=== PATIENT | female | born 1975 | race Caucasian/White ===

== ENCOUNTER 2017-03-20 19:12 | Emergency (ER) | payer OTHER ==
[~2017-03-20 19:12] MED LIST: ACETAMINOPHEN325 MG PO; ASPIRIN ADULT L81 MG PO; ENDOCET1 TAB PO; FOLIC ACID1 MG PO; HYCET1 ML PO; PRENATAL VITAMINS PO
--- NOTE | 2017-03-20 19:44 | ED NURSING NOTES ---
Clinical Report - Nurses [facility] [address] [place] [address] 03/20/2017 19:12 Patient: TONYA BARNHART TRIAGE Triage time 19:16 Mar 20 2017. Acuity: LEVEL 4. Chief Complaint: RIGHT LOWER EXTREMITY PAIN. 19:03/20/17. Alert. No acute distress. SEPSIS SCREEN: Sepsis Screen. Negative (no infection suspected/documented). KEVIN COMA SCORE: [place] Coma Scale: 15- eyes open spontaneously (4); best verbal response- oriented x 4 (5); best motor response- obeys commands (6). --19:23 Yisel Capellan 19:23 03/20/17. BP: 115/37. HR: 65. RR: 15. O2 saturation: 97%. Temp: 98.0 F. Pain level now 8/10. --19:23 Yisel Capellan. Weight: 83.4 kg stated. Height/Length: 66 inches Per Patient. BMI: 29.7. --19:21 Yisel Capellan. Medications Aspirin Oral. --19:19 Yisel Capellan. Medication/allergy information source: the patient and patient's family. --19:23 Yisel Capellan. Allergies None. --19:19 Yisel Capellan. History Arrived by private vehicle. Historian: patient. Accompanied by family. Primary physician (Alma). No injury occurred. This occurred (Two days ago). ( Pt reports pain in the back of the calf. Sometimes on movement, other times is random. C/o hard calf.). She has had trouble walking. 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 PAST MEDICAL HX: Tetanus status: up-to-date. Immunizations: up-to-date. Last normal menstrual period was 2 weeks ago. SOCIAL HX: Never smoker. No alcohol use or drug use. FALL RISK ASSESSMENT: Fall risk assessment completed. No fall risk identified. NUTRITIONAL RISK ASSESSMENT: The nutritional risk assessment revealed no deficiencies. FUNCTIONAL ASSESSMENT: Functional assessment: no impairments noted. LEARNING NEEDS ASSESSMENT: The learning needs assessment revealed no barriers. SKIN INTEGRITY ASSESSMENT: Skin integrity risk assessment completed. No skin integrity risk identified. --19:23 Yisel Capellan. PROBLEMS: Cholecystitis. CVA - Cerebrovascular Accident. --19:19 Yisel Capellan. ADDITIONAL SURGERIES: . Gallbladder Surgery. --19:19 Yisel Capellan. Assessment The patient states feels the same. --19: Yisel Capellan. Interventions ID band on patient. --19:23 Yisel Capellan. PHYSICAL ASSESSMENT 19:03/20/17. Ambulatory to room. Patient gowned. GENERAL / NEURO / PSYCH: Oriented X 4. Alert. Appears in no acute distress. EXTREMITIES: Bilateral 2+ non-pitting edema of the lower extremities involving both lower legs. Extremity pulses are within normal limits. Extremities exhibit normal ROM. Neuro-vascular status intact to the extremity. Normal gait. Right leg: tenderness and swelling. Left leg: swelling. SKIN: Skin intact. Skin is warm and dry. --19:24 Yisel Capellan. NURSING PROGRESS NOTES 19:03/20/17. The plan of care for this patient has been created. Neuro-vascular extremity check. Patient gowned. Reassurance given. Two patient identifiers checked. Call light placed in reach. Side rails up x 1. Bed placed in lowest position. Brakes of bed on. Patient ready for evaluation- chart flagged and ED physician and PA notified. --: Yisel Capellan. DISPOSITION / DISCHARGE :03/20/17. Departure time: :Mar 20 2017. Condition at departure: improved. The goals identified in the patient's plan of care were met. No learning barriers present. Discharge instructions provided and reviewed with the patient and family. Reviewed warnings (Patient and family verbalized awareness and understanding of warning s/sx listed in dc paperwork.). Reviewed medication(s) (Ibuprofen). Treatments reviewed. Reviewed referral to a primary care physician for followup. Patient verbalized understanding. Written instructions provided in Pashto. The patient was discharged by the physician retail event and sales assistant. She was discharged home and accompanied by family. She left the Emergency Department ambulatory and via private vehicle. Family member driving. FALL RISK ASSESSMENT: Fall risk assessment completed. No fall risk identified. --20:07 Yisel Capellan 20:03 03/20/17. BP: deferred. HR: deferred. RR: deferred. O2 saturation: deferred. Temp: deferred. Pain level now deferred. --20:07 Yisel Capellan. Locked/Released at 03/20/2017 20:07 by Yisel Capellan,
--- NOTE | 2017-03-20 19:44 | ED CLINICAL REPORT ---
Clinical Report - Physicians/Mid Levels [facility] [address] [place] [address] 03/20/2017 19:12 Patient: TONYA BARNHART Time Seen: 19:22 Mar 20 2017. Arrived- By private vehicle. Historian- patient and family. HISTORY OF PRESENT ILLNESS Chief Complaint: Chief Complaint- R. LE Pain. The injury happened yesterday. Patient is experiencing mild pain. Patient denies injury to the head or neck. (right lower extremity pain over the last 24 hours, posterior nature. Pain worsens with some activity. No pain currently. Patient with history of clot in her brain. Denies history of DVT or PE. Patient takes a daily aspirin, 81 mg. Denies any injury or trauma, increased activity. Denies any fevers or chills or any rash.). REVIEW OF SYSTEMS The patient complains of pain on weight bearing. No swelling, weakness or numbness. All systems otherwise negative, except as recorded above. PAST HISTORY The patient has not had a prior injury to the same area. SOCIAL HISTORY Never smoker. No alcohol use or drug use. ADDITIONAL NOTES The nursing notes have been reviewed. PHYSICAL EXAM Vital Signs: 03/20/2017 19:23 BP: 115/37. HR: 65. RR: 15. O2 saturation: 97%. Temp: 98.0 F. Appearance: Alert. No acute distress. Head: Head atraumatic. CVS: Heart sounds normal. Respiratory: No respiratory distress. Breath sounds normal. Back: Normal inspection. No tenderness. Skin: Skin warm. Normal skin color. Extremities: Right knee. No tenderness or swelling. Right leg: mild tenderness. No ecchymosis or deformity. Right ankle. No abrasion or ecchymosis. Neuro, Vascular and Tendons: Vascular status intact. Tendon function intact. Gait: No limping gait. Neuro: Oriented X 3. No motor deficit. LABS, X-RAYS, AND EKG Note - Tests: (us venous R. LE: NEG FOR DVT). PROGRESS AND PROCEDURES Course of Care: patient here in the emergency department, with her sister, Miladis during most of the translation for the patient. Patient denies any injury. Ultrasound is unremarkable for any acute signs of DVT. No signs of infectious process. Patient has good distal pulses. No history of injury. Able to a really suspect myofascial, strain. Otherwise stable for discharge. Patient is stable. Patient/family counseled. Disposition: Discharged. Condition: good. CLINICAL IMPRESSION Muscle strain of the right lower leg. INSTRUCTIONS Elevate affected areas above chest level. You may walk and bear weight as tolerated. (NO SIGNS OF CLOTS alternate heat/ ice). Prescription Medications: Motrin take 1 tablet orally every 8 hours as needed for pain. Dispense ten (10). No refill. Substitution is permissible. Follow-up: Follow up with your doctor in three days. (Electronically signed by Candelaria Navarro P.A.-C 03/20/2017 20:08)
--- NOTE | 2017-03-20 19:44 | ED ORDER SUMMARY ---
..... Patient: TONYA BARNHART OrderSheet [facility] VisitID: [id number] [address] [place] [address] 41y, F Registration Date/Time: 03/20/2017 ORDER SHEET Weight: 83.4 kg (stated) Allergies: None GENERAL ORDERS: US Venous Right Urgent (19:20 03/20/2017 Naveed Cuellar) [facility] (19:45 [facility]) MEDICATION ORDERS: IV FLUIDS: ORDER SHEET NOTES: [Electronically signed by Yisel Capellan (20:07 03/20/2017)] [Electronically signed by Candelaria Navarro P.A.-C (20:08 03/20/2017)] [Electronically locked/signed by Yisel Capellan (20:07 03/20/2017)]
--- NOTE | 2017-03-20 19:44 | ED ORDER SUMMARY ---
..... Patient: TONYA BARNHART OrderSheet [facility] VisitID: [id number] [address] [place] [address] 41y, F Registration Date/Time: 03/20/2017 ORDER SHEET Weight: 83.4 kg (stated) Allergies: None GENERAL ORDERS: US Venous Right Urgent (19:20 03/20/2017 Naveed Cuellar) ([facility]ck 19:[facility] (19:[address] [facility]) MEDICATION ORDERS: IV FLUIDS: ORDER SHEET NOTES: [Electronically signed by Yisel Capellan (20:07 03/20/2017)] [Electronically signed by Candelaria Navarro P.A.-C (20:08 03/20/2017)] [Electronically locked/signed by Yisel Capellan (20:07 03/20/2017)]
--- NOTE | 2017-03-20 19:44 | ED NURSING NOTES ---
Clinical Report - Nurses [facility] [address] [place] [address] 03/20/2017 19:12 Patient: TONYA BARNHART TRIAGE Triage time 19:16 Mar 20 2017. Acuity: LEVEL 4. Chief Complaint: RIGHT LOWER EXTREMITY PAIN. 19:03/20/17. Alert. No acute distress. SEPSIS SCREEN: Sepsis Screen. Negative (no infection suspected/documented). KEVIN COMA SCORE: [place] Coma Scale: 15- eyes open spontaneously (4); best verbal response- oriented x 4 (5); best motor response- obeys commands (6). --19:23 Yisel Capellan 19:23 03/20/17. BP: 115/37. HR: 65. RR: 15. O2 saturation: 97%. Temp: 98.0 F. Pain level now 8/10. --19:23 Yisel Capellan. Weight: 83.4 kg stated. Height/Length: 66 inches Per Patient. BMI: 29.7. --19:21 Yisel Capellan. Medications Aspirin Oral. --19:19 Yisel Capellan. Medication/allergy information source: the patient and patient's family. --19:23 Yisel Capellan. Allergies None. --19:19 Yisel Capellan. History Arrived by private vehicle. Historian: patient. Accompanied by family. Primary physician (Alma). No injury occurred. This occurred (Two days ago). ( Pt reports pain in the back of the calf. Sometimes on movement, other times is random. C/o hard calf.). She has had trouble walking. 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 PAST MEDICAL HX: Tetanus status: up-to-date. Immunizations: up-to-date. Last normal menstrual period was 2 weeks ago. SOCIAL HX: Never smoker. No alcohol use or drug use. FALL RISK ASSESSMENT: Fall risk assessment completed. No fall risk identified. NUTRITIONAL RISK ASSESSMENT: The nutritional risk assessment revealed no deficiencies. FUNCTIONAL ASSESSMENT: Functional assessment: no impairments noted. LEARNING NEEDS ASSESSMENT: The learning needs assessment revealed no barriers. SKIN INTEGRITY ASSESSMENT: Skin integrity risk assessment completed. No skin integrity risk identified. --19:23 Yisel Capellan. PROBLEMS: Cholecystitis. CVA - Cerebrovascular Accident. --19:19 Yisel Capellan. ADDITIONAL SURGERIES: . Gallbladder Surgery. --19:19 Yisel Capellan. Assessment The patient states feels the same. --19: Yisel Capellan. Interventions ID band on patient. --19:23 Yisel Capellan. PHYSICAL ASSESSMENT 19:03/20/17. Ambulatory to room. Patient gowned. GENERAL / NEURO / PSYCH: Oriented X 4. Alert. Appears in no acute distress. EXTREMITIES: Bilateral 2+ non-pitting edema of the lower extremities involving both lower legs. Extremity pulses are within normal limits. Extremities exhibit normal ROM. Neuro-vascular status intact to the extremity. Normal gait. Right leg: tenderness and swelling. Left leg: swelling. SKIN: Skin intact. Skin is warm and dry. --19:24 Yisel Capellan. NURSING PROGRESS NOTES 19:03/20/17. The plan of care for this patient has been created. Neuro-vascular extremity check. Patient gowned. Reassurance given. Two patient identifiers checked. Call light placed in reach. Side rails up x 1. Bed placed in lowest position. Brakes of bed on. Patient ready for evaluation- chart flagged and ED physician and PA notified. --: Yisel Capellan. DISPOSITION / DISCHARGE :03/20/17. Departure time: :Mar 20 2017. Condition at departure: improved. The goals identified in the patient's plan of care were met. No learning barriers present. Discharge instructions provided and reviewed with the patient and family. Reviewed warnings (Patient and family verbalized awareness and understanding of warning s/sx listed in dc paperwork.). Reviewed medication(s) (Ibuprofen). Treatments reviewed. Reviewed referral to a primary care physician for followup. Patient verbalized understanding. Written instructions provided in [place]. The patient was discharged by the physician preschool teacher's assistant. She was discharged home and accompanied by family. She left the Emergency Department ambulatory and via private vehicle. Family member driving. FALL RISK ASSESSMENT: Fall risk assessment completed. No fall risk identified. --20:07 Yisel Capellan 20:03 03/20/17. BP: deferred. HR: deferred. RR: deferred. O2 saturation: deferred. Temp: deferred. Pain level now deferred. --20:07 Yisel Capellan. Locked/Released at 03/20/2017 20:07 by Yisel Capellan,
--- NOTE | 2017-03-20 19:44 | ED CLINICAL REPORT ---
Clinical Report - Physicians/Mid Levels [facility] [address] [place] [address] 03/20/2017 19:12 Patient: TONYA BARNHART Time Seen: 19:22 Mar 20 2017. Arrived- By private vehicle. Historian- patient and family. HISTORY OF PRESENT ILLNESS Chief Complaint: Chief Complaint- R. LE Pain. The injury happened yesterday. Patient is experiencing mild pain. Patient denies injury to the head or neck. (right lower extremity pain over the last 24 hours, posterior nature. Pain worsens with some activity. No pain currently. Patient with history of clot in her brain. Denies history of DVT or PE. Patient takes a daily aspirin, 81 mg. Denies any injury or trauma, increased activity. Denies any fevers or chills or any rash.). REVIEW OF SYSTEMS The patient complains of pain on weight bearing. No swelling, weakness or numbness. All systems otherwise negative, except as recorded above. PAST HISTORY The patient has not had a prior injury to the same area. SOCIAL HISTORY Never smoker. No alcohol use or drug use. ADDITIONAL NOTES The nursing notes have been reviewed. PHYSICAL EXAM Vital Signs: 03/20/2017 19:23 BP: 115/37. HR: 65. RR: 15. O2 saturation: 97%. Temp: 98.0 F. Appearance: Alert. No acute distress. Head: Head atraumatic. CVS: Heart sounds normal. Respiratory: No respiratory distress. Breath sounds normal. Back: Normal inspection. No tenderness. Skin: Skin warm. Normal skin color. Extremities: Right knee. No tenderness or swelling. Right leg: mild tenderness. No ecchymosis or deformity. Right ankle. No abrasion or ecchymosis. Neuro, Vascular and Tendons: Vascular status intact. Tendon function intact. Gait: No limping gait. Neuro: Oriented X 3. No motor deficit. LABS, X-RAYS, AND EKG Note - Tests: (us venous R. LE: NEG FOR DVT). PROGRESS AND PROCEDURES Course of Care: patient here in the emergency department, with her sister, Miladis during most of the translation for the patient. Patient denies any injury. Ultrasound is unremarkable for any acute signs of DVT. No signs of infectious process. Patient has good distal pulses. No history of injury. Able to a really suspect myofascial, strain. Otherwise stable for discharge. Patient is stable. Patient/family counseled. Disposition: Discharged. Condition: good. CLINICAL IMPRESSION Muscle strain of the right lower leg. INSTRUCTIONS Elevate affected areas above chest level. You may walk and bear weight as tolerated. (NO SIGNS OF CLOTS alternate heat/ ice). Prescription Medications: Motrin take 1 tablet orally every 8 hours as needed for pain. Dispense ten (10). No refill. Substitution is permissible. Follow-up: Follow up with your doctor in three days. (Electronically signed by Candelaria Navarro P.A.-C 03/20/2017 20:08)
--- NOTE | 2017-03-20 20:09 | ED MAR SUMMARY ---
..... Medication Administration Record [facility] [address], [place] [id number] Patient: TONYA BARNHART Visit ID: [id number] 41y, F Weight: 83.4 kg Height/Length: 66 in BMI: 29.7 ALLERGIES: None
--- NOTE | 2017-03-20 20:09 | ED MAR SUMMARY ---
..... Medication Administration Record [facility] [address] [place], [place] [id number] Patient: TONYA BARNHART Visit ID: [id number] 41y, F Weight: 83.4 kg Height/Length: 66 in BMI: 29.7 ALLERGIES: None
--- NOTE | 2017-03-20 20:09 | ED MED RECONCILIATION SUMMARY ---
Patient: TONYA BARNHART Medication Reconciliation Report [facility] VisitID: [id number] [address] [place] [address] 41y, F Registration Date/Time: 03/20/2017 Weight: 83.4 kg Height/Length: 66 in. BMI: 29.7 ALLERGIES: None The patient's Home Medications are listed below: THE FOLLOWING MEDICATIONS NEED TO BE RECONCILED: Aspirin Oral The source(s) of the original Home Medication information: patient's family member patient The following Medications were given to the patient in the Emergency Department: None. The following Medications were prescribed to the patient: Motrin take 1 tablet orally every 8 hours as needed for pain. Dispense ten (10). No refill. Substitution is permissible. -- Candelaria Navarro P.A.-C
--- NOTE | 2017-03-20 20:09 | ED DISCHARGE INSTRUCTIONS ---
Patient: TONYA BARNHRAT General Instructions [facility] VisitID: [id number] [place] [address] 41y, F Registration Date/Time: 03/20/2017 Muscle strain of the right lower leg. INSTRUCTIONS Elevate affected areas above chest level. You may walk and bear weight as tolerated. (NO SIGNS OF CLOTS alternate heat/ ice). Prescription Medications: Motrin take 1 tablet orally every 8 hours as needed for pain. Dispense ten (10). No refill. Substitution is permissible. Follow-up: Follow up with your doctor in three days. ADDITIONAL INFORMATION Muscle Strain,Extremity A MUSCLE STRAIN is a stretching and tearing of muscle fibers. This causes pain, especially with motion of that muscle. There may also be some swelling and bruising. Home Care: 1) Keep the injured area raised to reduce pain and swelling. This is especially important during the first 48 hours. 2) Make an ice pack (ice cubes in a plastic bag, wrapped in a towel) and apply for 20 minutes every 1-2 hours the first day. You should continue with ice packs 3-4 times a day for the second and third days. Unless otherwise instructed, on the fourth day you may begin hot soaks or hot packs (small towel soaked in hot water) 3-4 times a day while you gently exercise the involved area. 3) You may use acetaminophen (Tylenol) or ibuprofen (Motrin, Advil) to control pain, unless another medicine was prescribed. [ NOTE : If you have chronic liver or kidney disease or ever had a stomach ulcer or GI bleeding, talk with your doctor before using these medicines.] 4) For LEG STRAINS: If CRUTCHES have been recommended, do not bear full weight on the injured leg until you can do so without pain. You may return to sports when you are able to hop and run on the injured leg without pain. Follow Up with your doctor or this facility if you are not improving within the next five days. Get Prompt Medical Attention if any of the following occur: -- Fingers or toes become swollen, cold, blue, numb or tingly -- Pain or swelling increases You have been given the following additional information: Muscle Strain, Extremity You may walk and bear weight as tolerated. (Electronically signed by Candelaria Navarro P.A.-C 03/20/2017 20:08)
--- NOTE | 2017-03-20 20:09 | ED MED RECONCILIATION SUMMARY ---
Patient: TONYA BARNHART Medication Reconciliation Report [facility] VisitID: [id number] [address] [place] [address] 41y, F Registration Date/Time: 03/20/2017 Weight: 83.4 kg Height/Length: 66 in. BMI: 29.7 ALLERGIES: None The patient's Home Medications are listed below: THE FOLLOWING MEDICATIONS NEED TO BE RECONCILED: Aspirin Oral The source(s) of the original Home Medication information: patient's family member patient The following Medications were given to the patient in the Emergency Department: None. The following Medications were prescribed to the patient: Motrin take 1 tablet orally every 8 hours as needed for pain. Dispense ten (10). No refill. Substitution is permissible. -- Candelaria Navarro P.A.-C
--- NOTE | 2017-03-20 20:40 | DIAGNOSTIC IMAGING REPORT ---
PROCEDURE: US VENOUS - RIGHT EXT INDICATION: SWELLING TECHNIQUE: Color Doppler duplex imaging of the deep and superficial venous system without and with compression. COMPARISON: None. FINDINGS: Deep and superficial venous system of the right lower extremity is within normal limits. There is no evidence of deep vein thrombosis or superficial thrombophlebitis. IMPRESSION: 1. Negative venous ultrasound of the right lower extremity.
== END 2017-03-20 20:04 | disposition home or self-care (01) ==
LOC: ED SRH 19:12
DX: S86.911A Strain of unspecified muscle(s) and tendon(s) at lower leg level, right leg, initial encounter (principal); X58.XXXA Exposure to other specified factors, initial encounter; Y93.9 Activity, unspecified; Y92.9 Unspecified place or not applicable; Y99.9 Unspecified external cause status; Z86.73 Personal history of transient ischemic attack (TIA), and cerebral infarction without residual deficits; Z79.82 Long term (current) use of aspirin